=== PATIENT | male | born 1980 | race American Indian/Alaskan Native ===

== ENCOUNTER 2022-01-13 03:57 | Emergency (ER) | payer MEDICAID ==
[2022-01-13] MEDS ORDERED: LORazepam 2 MG/ML SDV IVPUSH ONE (04:32)
[2022-01-13 04:40] LABS: ESTIMATED GFR 60 mL/min (>60)
[2022-01-13] MEDS ORDERED: LORazepam 2 MG/ML SDV IM STA (04:43)
== END 2022-01-13 05:23 ==
LOC: MERGE 03:57 → JP.ED 03:57
DX: S00.83XA Contusion of other part of head, initial encounter (principal); F12.90 Cannabis use, unspecified, uncomplicated; F15.90 Other stimulant use, unspecified, uncomplicated; Y04.0XXA Assault by unarmed brawl or fight, initial encounter
CPT/HCPCS: 36415; 80053; 80305-QW; 80307; 81001; 85025; 96372; 99284; J2060